=== PATIENT | female | born 1970 | race Asian ===

== ENCOUNTER → 2017-07-22 | Outpatient (CLI) | payer OTHER ==
[~2017-07-22] MED LIST: ASCO500T12 PO; CHOL200074 PO; MULT-257 PO; NONE PER PT
== END | disposition home or self-care (01) ==
LOC: CFH 07:06
PROVIDERS: ATTEND Internal Medicine Gastroenterology
DX: K76.0 Fatty (change of) liver, not elsewhere classified (principal); K21.9 Gastro-esophageal reflux disease without esophagitis
CPT/HCPCS: 76700

== ENCOUNTER 2017-10-17 21:39 | Observation (INO) | payer BC, OTHER ==
[~2017-10-17] VITALS: Ht 152.4 cm; Wt 91.8 kg
[2017-10-17 22:41] LABS: MICROSCOPIC NOT IND
[2017-10-17 22:50] LABS: CULTURE INDICATED? NO
[2017-10-17] MEDS ORDERED: SODIUM CHLORIDE FLUSH 10ML SYR IVF ONE (23:30)
[2017-10-17 23:41] LABS: BASOPHILS # (AUTO) 0.03 x10^3/uL (0-0.1); BASOPHILS % (AUTO) 0 % (0-1); EOSINOPHILS # (AUTO) 0.06 x10^3/uL (0-0.4); EOSINOPHILS % (AUTO) 1 % (1-7); LYMPHOCYTES # (AUTO) 1.88 x10^3/uL (1-3.4); LYMPHOCYTES % (AUTO) 18 % (22-44); MD NO; MEAN CORPUSCULAR HGB CONC 34.5 g/dL (32.4-35.8); MEAN CORPUSCULAR VOLUME 92.7 fL (80-100); MEAN PLATELET VOLUME 8.4 fL (7.4-10.4); MONOCYTES % (AUTO) 6 % (2-9); NEUTROPHILS # (AUTO) 7.76 x10^3/uL (1.8-6.8); NEUTROPHILS % (AUTO) 75 % (42-75); PLATELET COUNT 242 x10^3/uL (130-400); RED BLOOD COUNT 4.62 x10^6/uL (3.82-5.3); RED CELL DISTRIBUTION WIDTH 12.8 % (9.6-15.2)
[2017-10-17 23:47] LABS: ALANINE AMINOTRANSFERASE 28 U/L (12-78); ALBUMIN 3.7 g/dL (3.4-5.0); ANION GAP 7 mmol/L (5-15); CALCIUM 8.6 mg/dL (8.5-10.1); CHLORIDE 105 mmol/L (98-107); CREATININE 0.88 mg/dL (0.55-1.02)
[2017-10-17 23:51] LABS: ALKALINE PHOSPHATASE 85 U/L (45-117); BILIRUBIN,TOTAL 2.7 mg/dL (0.2-1.0); TOTAL PROTEIN 7.5 g/dL (6.4-8.2)
[2017-10-18] MEDS ORDERED: SODIUM CHLORIDE FLUSH 10ML SYR IVF PRN (01:30)
[2017-10-18] MEDS ORDERED: PROMETHAZINE 25 MG/ML, 1ML IM PRN (01:30)
[2017-10-18] MEDS ORDERED: MORPHINE SULFATE 4 MG/ML, 1ML IVPush PRN ×2 (01:30→07:00)
[2017-10-18] MEDS ORDERED: CEFOTETAN PMX 2GM/50ML 50 ML IV ONE (01:30)
[2017-10-18] MEDS ORDERED: MORPHINE SULFATE 4 MG/ML, 1ML ONE (01:39)
[2017-10-18] MEDS ORDERED: D5%-0.45NACL+KCL 20MEQ 1,000 ML IV SCH (02:00)
[2017-10-18 03:09] VITALS: BP 145/97
[2017-10-18 03:12] VITALS: BP 145/97
[2017-10-18] MEDS ORDERED: OMNIPAQUE 350 MG/ML, 100ML BOTTLE ONE (03:57)
[2017-10-18] MEDS ORDERED: EPINEPHRINE 1 MG/ML, 1ML ONE (05:13)
[2017-10-18] MEDS ORDERED: BUPIVACAINE/PF 0.5% ONE (05:13)
[2017-10-18] MEDS ORDERED: BUPIVACAINE/PF 0.5% INFIL ONE (05:41)
[2017-10-18] MEDS ORDERED: EPINEPHRINE 1 MG/ML, 1ML INFIL ONE (05:41)
[2017-10-18] MEDS ORDERED: MIDAZOLAM 1 MG/ML, 2ML ONE (05:51)
[2017-10-18] MEDS ORDERED: FENTANYL PF 100 MCG/2ML ONE ×2 (05:51→07:12)
[2017-10-18] MEDS ORDERED: SUCCINYLCHOLINE 20 MG/ML, 10ML ONE (06:02)
[2017-10-18] MEDS ORDERED: ROCURONIUM 10 MG/ML,10ML ONE (06:02)
[2017-10-18] MEDS ORDERED: PROPOFOL 10 MG/ML, 20ML ONE (06:02)
[2017-10-18] MEDS ORDERED: NEOSTIGMINE 1 MG/ML, 10ML ONE (06:02)
[2017-10-18] MEDS ORDERED: DEXAMETHASONE 4 MG/ML, 1ML ONE (06:02)
[2017-10-18] MEDS ORDERED: GLYCOPYRROLATE 0.2MG/1ML, 5ML ONE (06:02)
[2017-10-18] MEDS ORDERED: METOCLOPRAMIDE 5 MG/ML, 2ML ONE (06:02)
[2017-10-18] MEDS ORDERED: OXYcodone 5 MG/5 ML ORAL.SOL UDC PO PRN (07:00)
[2017-10-18] MEDS ORDERED: MEPERIDINE/PF 25MG/0.5ML IVPush PRN (07:00)
[2017-10-18] MEDS ORDERED: FENTANYL PF 100 MCG/2ML IV PRN (07:00)
[2017-10-18] MEDS ORDERED: KETOROLAC 30 MG/1 ML IV PRN (07:00)
[2017-10-18] MEDS ORDERED: ONDANSETRON ODT 8 MG PO PRN (07:00)
[2017-10-18] MEDS ORDERED: ALBUTEROL SULFATE 2.5 MG/3 ML NPPB PRN (07:00)
[2017-10-18] MEDS ORDERED: ACETAMINOPHEN 325 MG TABLET PO PRN (07:00)
[2017-10-18] MEDS ORDERED: PROMETHAZINE 25 MG/ML, 1ML IV PRN (07:00)
[2017-10-18] MEDS ORDERED: OXYcodone 5 MG/5 ML ORAL.SOL UDC ONE (07:30)
[2017-10-18] MEDS ORDERED: ACETAMINOPHEN 650 MG/20.3 ML UDC ONE (07:30)
[2017-10-18 08:30] VITALS: BP 125/68
[2017-10-18] MEDS ORDERED: morphine SULFATE 10 MG/ML, 1ML IV PRN (08:30)
[2017-10-18] MEDS ORDERED: OXYcodone/APAP 5/325MG TABLET PO PRN (08:30)
[2017-10-18] MEDS ORDERED: ONDANSETRON 2MG/ML, 2ML IV PRN (09:00)
[2017-10-18] MEDS: LACTATED RINGERS 1,000 ML IV SCH (09:08)
[2017-10-18 14:30] VITALS: BP 114/71
[2017-10-18] MEDS: CEFOTETAN PMX 1GM/50ML 50 ML IV SCH (17:49)
[2017-10-18 19:25] VITALS: BP 141/93
[2017-10-19 00:46] VITALS: BP 92/57
[2017-10-19 04:58] LABS: MEAN CORPUSCULAR HEMOGLOBIN 31.6 pg (27.0-34.8); MEAN PLATELET VOLUME 8.6 fL (7.4-10.4); PLATELET COUNT 245 x10^3/uL (130-400); RED BLOOD COUNT 4.21 x10^6/uL (3.82-5.3); RED CELL DISTRIBUTION WIDTH 12.6 % (9.6-15.2)
[2017-10-19 05:41] LABS: BASOPHILS # (AUTO) 0.01 x10^3/uL (0-0.1); BASOPHILS % (AUTO) 0 % (0-1); EOSINOPHILS % (AUTO) 0 % (1-7); LYMPHOCYTES % (AUTO) 11 % (22-44); MD SCAN; MONOCYTES # (AUTO) 0.42 x10^3/uL (0.2-0.8); MONOCYTES % (AUTO) 2 % (2-9); NEUTROPHILS # (AUTO) 14.79 x10^3/uL (1.8-6.8); NEUTROPHILS % (AUTO) 87 % (42-75)
[2017-10-19] MEDS: CEFOTETAN PMX 1GM/50ML 50 ML IV SCH (05:45)
[2017-10-19] MEDS: LACTATED RINGERS 1,000 ML IV SCH (05:45)
[2017-10-19 07:20] VITALS: BP 109/70
[2017-10-19] MEDS ORDERED: OXYC-302 PO (12:29)
[2017-10-19 13:15] VITALS: BP 116/79
== END 2017-10-19 13:30 | disposition home or self-care (01) ==
LOC: ED 23:35 → EDIP 10-18 01:26 → 4NOR 10-18 03:00 → OBSVTOIN 10-18 08:04 → INTOOBSV 10-18 08:04 → UNDODISIN 10-19 13:30
PROVIDERS: ADMIT Surgery; ATTEND Surgery
DX: K35.80 Unspecified acute appendicitis (principal)
CPT/HCPCS: 36415; 44970; 74177; 80053; 81003; 84703; 85025; 88304; 96365; 96372; 96375; 96376; 99285; G0378; J0171; J0330; J1100; J2250; J2550; J2704; J2710; J2765; J3010; J3480; J3490; J7120; Q9967; S0074; 96374